=== PATIENT | female | born 1960 | race Caucasian/White ===

== ENCOUNTER → 2017-11-06 | Outpatient (CLI) | payer BC ==
--- NOTE | 2017-11-08 08:41 | RADIOLOGY REPORT (SQ) ---
EXAM DESCRIPTION: PET CT SKULL/THIGH COMPLETED DATE/TIME: 11/06/2017 9:54 pm REASON FOR STUDY: LYMPHOMA C85.88 OT TYPES OF NON-HODGKIN LYMPHOMA, LYMPH NODES MULT S COMPARISON: CT neck chest abdomen and pelvis 12/25/2014 PET-CT 08/26/2013 PET-CT 01/03/2011 RADIONUCLIDE AND DOSE: 12.7 mCi F18 FDG The route of agent administration: Intravenous FASTING BLOOD SUGAR: 85 mg/dl CONTRAST TYPE AND DOSE: No CT contrast given. TECHNIQUE: Blood glucose level was verified. Above dose of FDG was injected intravenously. 2-D seg mented attenuation correction images were obtained from the base of the skull to the midthighs. Nonc ontrast CT images were obtained for attenuation correction and fusion with emission images. CT image s were performed without oral or intravenous contrast and are not sensitive for parenchymal lesions. A series of overlapping emission PET images were obtained. Images [facility] by the radiologist. Images stored on PACS. LIMITATIONS: None. FINDINGS: HEAD AND NECK: No areas of abnormal metabolic activity in the soft tissues of the head and neck. No adenopathy. CHEST: No areas of abnormal metabolic activity in the chest. No adenopathy. ABDOMEN AND PELVIS: There is increased uptake throughout the stomach fundus, abnormal but nonspecific , with SUV of 6.8. Gastric lymphoma could not be excluded. PROXIMAL LOWER EXTREMITIES: No areas of abnormal metabolic activity in the soft tissues of the lower extremities. BONES: No abnormal metabolic activity in the visualized skeleton. ADDITIONAL CT FINDINGS: Postcholecystectomy. Colonic diverticuli without CT signs of acute diverticu litis. Tiny right lower pole intrarenal nonobstructive stone OTHER: Liver background activity 2.3 SUV. Blood pool background activity 1.4 SUV. IMPRESSION: Gastric fundal increased activity, could represent recurrence of lymphoma. No hypermetabolic adenopathy worrisome for lymphoma elsewhere. TECHNICAL DOCUMENTATION: JOB ID: [id number]- All Rights Reserved Reading location - IP/workstation name: [email or web address]
== END ==
LOC: RAD 19:24
PROVIDERS: ATTEND Internal Medicine
DX: C82.48 Follicular lymphoma grade IIIb, lymph nodes of multiple sites (principal)
CPT/HCPCS: 78815; A9552

== ENCOUNTER 2019-08-23 16:43 | Emergency (ER) | payer BC ==
[2019-08-23 17:47] LABS: APPEARANCE,URINE CLEAR; BILIRUBIN,URINE NEGATIVE (NEGATIVE); COLOR,URINE STRAW; GLUCOSE, URINE NEGATIVE (NEGATIVE); KETONES,URINE NEGATIVE (NEGATIVE); LEUKOCYTE ESTERASE,URINE NEGATIVE (NEGATIVE); NITRITE,URINE NEGATIVE (NEGATIVE); PROTEIN,URINE NEGATIVE (NEGATIVE); URINE SPECIFIC GRAVITY 1.005; UROBILINOGEN,URINE NEGATIVE mg/dL (<2.0)
[2019-08-23 17:49] LABS: ABSOLUTE BASOPHILS # (AUTO) 0.1 10^3/uL (0.0-0.2); ABSOLUTE EOSINOPHILS # (AUTO) 0.3 10^3/uL (0.0-0.6); ABSOLUTE LYMPHOCYTES (AUTO) 1.6 10^3/uL (0.5-4.7); ABSOLUTE MONOCYTES (AUTO) 0.8 10^3/uL (0.1-1.4); ABSOLUTE NEUT (AUTO) 6.1 10^3/uL (1.7-8.2); BASOPHILS % (AUTO) 0.8 % (0-2); EOSINOPHILS % (AUTO) 3.9 % (0-6); HEMATOCRIT 39.2 % (36.0-47.0); HEMOGLOBIN 13.7 g/dL (12.0-15.5); LYMPHOCYTES % (AUTO) 17.6 % (13-45); MEAN CORPUSCULAR HEMOGLOBIN 33.2 pg (27.0-33.4); MEAN CORPUSCULAR HGB CONC 34.9 g/dL (32.0-36.0); MEAN CORPUSCULAR VOLUME 95 fl (80-97); MONOCYTES % (AUTO) 9.1 % (3-13); PLATELET COUNT 226 10^3/uL (150-450); RED BLOOD COUNT 4.11 10^6/uL (3.72-5.28); RED CELL DISTRIBUTION WIDTH 14.4 % (11.5-14.0); SEGMENTED NEUTROPHILS % (AUTO) 68.6 % (42-78); TOTAL CELLS COUNTED % (AUTO) 100 %; WHITE BLOOD COUNT 8.9 10^3/uL (4.0-10.5)
[2019-08-23 17:58] LABS: ALBUMIN 4.3 g/dL (3.5-5.0); ALKALINE PHOSPHATASE 91 U/L (38-126); ANION GAP 8 (5-19); ASPARTATE AMINO TRANSFERASE 42 U/L (14-36); BILIRUBIN,DIRECT 0.3 mg/dL (0.0-0.4); BILIRUBIN,TOTAL 0.6 mg/dL (0.2-1.3); BLOOD UREA NITROGEN 9 mg/dL (7-20); CALCIUM 9.6 mg/dL (8.4-10.2); CARBON DIOXIDE 29 mmol/L (22-30); CHLORIDE 101 mmol/L (98-107); GLUCOSE 89 mg/dL (75-110); POTASSIUM 4.3 mmol/L (3.6-5.0); TOTAL PROTEIN 7.1 g/dL (6.3-8.2)
[2019-08-23] MEDS ORDERED: DEXAMETHASONE SOD PHOS INJ 10 MG/1 ML VIAL IV ONE (18:17)
[2019-08-23] MEDS ORDERED: IPRATROPIUM/ALBUTEROL 0.5-2.5 MG/3 ML AMPUL NEB ONE (18:17)
--- NOTE | 2019-08-23 18:25 | RADIOLOGY REPORT (SQ) ---
EXAM DESCRIPTION: CHEST SINGLE VIEW COMPLETED DATE/TIME: 08/23/2019 5:57 pm REASON FOR STUDY: SOB, Cough COMPARISON: PA and lateral views of the chest from 06/26/2012. EXAM PARAMETERS: NUMBER OF VIEWS: One view. TECHNIQUE: An AP view of the chest was obtained. RADIATION DOSE: NA LIMITATIONS: None. FINDINGS: LUNGS AND PLEURA: No consolidation, pleural effusion or pneumothorax. MEDIASTINUM AND HILAR STRUCTURES: No mediastinal or hilar contour abnormality. HEART AND VASCULAR STRUCTURES: The cardiac silhouette and pulmonary vasculature are within normal marquez its. BONES: No acute findings. HARDWARE: None in the chest. OTHER: No other finding. IMPRESSION: No acute cardiopulmonary process. TECHNICAL DOCUMENTATION: JOB ID: [id number] 2010 [employer]- All Rights Reserved Reading location - IP/workstation name: [email or web address]
--- NOTE | 2019-08-23 18:28 | ER Document Report ---
ED Respiratory Problem - General Chief Complaint: Shortness Of Breath Stated Complaint: COUGH/SHORTNESS OF BREATH Time Seen by Provider: 08/23/19 18:05 Primary Care Provider: SERA GRUBER MD [Primary Care Provider] - Follow up as needed Notes: CHIEF COMPLAINT: Cough, shortness of breath HPI: 59-year-old female with asthma history as well as lymphoma history in remission presenting for cough and shortness of breath over the last 12 days. Patient reports increased nasal and sinus congestion, increased shortness of breath with wheezing has been using albuterol inhaler and nebulizer as needed at home. No fever. Denies abdominal pain nausea vomiting. Denies chest pain. ROS: See HPI - all other systems were reviewed and are otherwise negative Constitutional: no fever Eyes: no drainage, no blurred vision ENT: positive runny nose, no sore throat Cardiovascular: no chest pain Resp: Positive SOB, positive cough GI: no vomiting, no diarrhea, no abdominal pain : no dysuria Integumentary: no rash Allergy: no hives Musculoskeletal: no extremity pain or swelling Neurological: no numbness/tingling, no weakness MEDICATIONS: I agree with the patient medications as charted by the RN. ALLERGIES: I agree with the allergies as charted by the RN. PAST MEDICAL HISTORY/PAST SURGICAL HISTORY: Reviewed and agree as charted by RN. SOCIAL HISTORY: Reviewed and agree as charted by RN. FAMILY HISTORY: No significant familial comorbid conditions directly related to patient complaint EXAM: Reviewed vital signs as charted by RN. CONSTITUTIONAL: Alert and oriented and responds appropriately to questions. Well-appearing; well-nourished, mild distress secondary to cough HEAD: Normocephalic; atraumatic EYES: PERRL; Conjunctivae clear, sclerae non-icteric ENT: normal nose; no rhinorrhea; moist mucous membranes; pharynx without lesions noted, no uvula edema or deviation, no tonsillar hypertrophy, phonation normal NECK: Supple without meningismus; non-tender; no cervical lymphadenopathy, no masses CARD: RRR; no murmurs, no clicks, no rubs, no gallops; symmetric distal pulses RESP: Normal chest excursion without splinting or tachypnea; breath sounds noted of posterior wheezing bilateral, no rhonchi, no rales, pulse oximetry 96% on room air not hypoxic ABD/GI: Normal bowel sounds; non-distended; soft, non-tender, no rebound, no guarding; no palpable organomegaly or masses. BACK: The back appears normal and is non-tender to palpation, there is no CVA tenderness EXT: Normal ROM in all joints; non-tender to palpation; no cyanosis, no effusions, no edema SKIN: Normal color for age and race; warm; dry; good turgor; no acute lesions noted NEURO: Moves all extremities equally; Motor and sensory function intact PSYCH: The patient's mood and manner are appropriate. Grooming and personal h ygiene are appropriate. MDM: 59-year-old female presenting for evaluation of cough shortness of breath congestion over the last 12 days. Started with nasal congestion now in the chest, she has an asthma history, has been using her inhaler has not been on steroids. Is afebrile here. More likely a viral etiology touching of bronchospasm then PE given the progression. Will give breathing treatment, steroids, reassess patient if she feels better will add steroids to regimen of breathing treatments at home TRAVEL OUTSIDE OF THE [place] IN LAST 30 DAYS: No - Related Data Allergies/Adverse Reactions: codeine [Codeine] Adverse Reaction (Verified 06/26/12 13:03) Home Medications: D3 vit, pravastatin, valacyclovir, albuterol neb, sertraline, alprazolam, albuterol inhaler Past Medical History - Social History Smoking Status: Current Every Day Smoker Chew tobacco use (# tins/day): No Frequency of alcohol use: None Drug Abuse: None Family History: Reviewed & Not Pertinent Patient has suicidal ideation: No Patient has homicidal ideation: No - Past Medical History Cardiac Medical History: Reports: Hx Coronary Artery Disease - controlled by med s Denies: Hx Heart Attack, Hx Hypertension Pulmonary Medical History: Denies: Hx Asthma, Hx Bronchitis, Hx COPD, Hx Pneumonia Neurological Medical History: Denies: Hx Cerebrovascular Accident, Hx Seizures Musculoskeletal Medical History: Denies Hx Arthritis Past Surgical History: Reports: Hx Cholecystectomy, Hx Oral Surgery. Denies: Hx Pacemaker - Immunizations Hx Diphtheria, Pertussis, Tetanus Vaccination: No Physical Exam - Vital signs Vitals: Temp Pulse Resp BP Pulse Ox 98.2 F 87 20 119/77 96 08/23/19 16:50 08/23/19 16:50 08/23/19 16:50 08/23/19 16:50 08/23/19 16:50 Course - Re-evaluation Re-evalutation: 08/23/19 19:39 Patient feels better after breathing treatment and steroids. Still with very slight expiratory wheezing. This is likely asthma related to a viral bronchospasm. Awaiting flu test to determine offering of Tamiflu. She is afebrile, lower suspicion for Covid at this time. Plan to keep patient on steroids, breathing treatments, PCP follow-up 08/23/19 19:55 Report will be given to oncoming shift to follow influenza and strep as they are not resulted yet. Nursing apparently had not initially collected them for a significant time after the original orders. If strep is positive we will obviously necessitate antibiotics. If influenza is positive given the patient's history will likely recommend Tamiflu. If both are negative anticipate discharge to follow-up with PCP - Vital Signs Vital signs: Temp Pulse Resp BP Pulse Ox 98.8 F 89 18 121/71 92 08/23/19 20:50 08/23/19 20:50 08/23/19 20:50 08/23/19 20:50 08/23/19 20:50 - Laboratory Result Diagrams: 08/23/19 17:10 08/23/19 17:10 Laboratory results interpreted by me: 08/23/19 08/23/19 17:10 17:10 RDW 14.4 H AST 42 H Discharge - Discharge Clinical Impression: Acute bronchospasm due to viral infection Condition: Stable Disposition: HOME, SELF-CARE Additional Instructions: 1. take the medications as prescribed 2. use the albuterol MDI or your nebulizer as instructed, 2 puffs every 4 hours as needed for cough/wheezing 3. call your primary care provider as soon as possible to schedule recheck appt. in the office. 4. return to the ED for any worsening condition, shortness of breath or continued fever that does not resolve with Motrin/Tylenol Prescriptions: Prednisone [Deltasone 20 mg Tablet] 2 tab PO DAILY 5 Days #10 tablet Referrals: SERA GRUBER MD [Primary Care Provider] - Follow up as needed
--- NOTE | 2019-08-23 20:00 | EKG REPORT ---
SEVERITY:- NORMAL ECG - SINUS RHYTHM : Confirmed by: Lupillo Camacho MD 23-Aug-2019 19:58:39
[2019-08-23 20:02] LABS: A TYPE INFLUENZA AG NEGATIVE (NEGATIVE); B INFLUENZA AG NEGATIVE (NEGATIVE)
[2019-08-23 20:52] VITALS: BP 121/71
== END 2019-08-23 21:09 | disposition home or self-care (01) ==
LOC: ER 16:43
DX: J45.909 Unspecified asthma, uncomplicated (principal); B97.89 Other viral agents as the cause of diseases classified elsewhere; R06.02 Shortness of breath; R05 Cough; R09.81 Nasal congestion; F17.200 Nicotine dependence, unspecified, uncomplicated; Z85.72 Personal history of non-Hodgkin lymphomas; I25.10 Atherosclerotic heart disease of native coronary artery without angina pectoris; Z79.899 Other long term (current) drug therapy
CPT/HCPCS: 93005; 94640; 99285; 96374; 36415; 87070; 87880; 85025; 80053; 81001; 87804; 71045; 93010; J1100; J7620

== ENCOUNTER 2020-05-05 23:42 | Emergency (ER) | payer BC ==
--- NOTE | 2020-05-06 00:06 | ER Document Report ---
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 Patient is concerned about a recurrence of the lymphoma. She has been cancer free for several years PHYSICAL EXAMINATION: There is soft tissue swelling with erythema and tenderness to the pinna of the right ear. There is no blistering rash noted. There is lymphadenopathy and soft tissue swelling in the right preauricular region with tenderness on palpation I have greeted and performed a rapid initial assessment of this patient. A comprehensive ED assessment and evaluation of the patient, analysis of test results and completion of medical decision making process will be conducted by an additional ED providers. TRAVEL OUTSIDE OF THE [place] IN LAST 30 DAYS: No - Related Data Allergies/Adverse Reactions: codeine [Codeine] Adverse Reaction (Verified 06/26/12 13:03) Past Medical History - Past Medical History Cardiac Medical History: Reports: Hx Coronary Artery Disease - controlled by meds Denies: Hx Heart Attack, Hx Hypertension Pulmonary Medical History: Denies: Hx Asthma, Hx Bronchitis, Hx COPD, Hx Pneumonia Neurological Medical History: Denies: Hx Cerebrovascular Accident, Hx Seizures Musculoskeltal Medical History: Denies Hx Arthritis Past Surgical History: Reports: Hx Cholecystectomy, Hx Oral Surgery. Denies: Hx Pacemaker - Immunizations Hx Diphtheria, Pertussis, Tetanus Vaccination: No Doctor's Discharge - Discharge Referrals: SERA GRUBER MD [Primary Care Provider] - Follow up as needed
[2020-05-06] MEDS ORDERED: KETOROLAC TROMETHAMINE INJ/PF 30 MG/1 ML SDV IV ONE (00:11)
[2020-05-06 00:36] LABS: ABSOLUTE BASOPHILS # (AUTO) 0.1 10^3/uL (0.0-0.2); ABSOLUTE EOSINOPHILS # (AUTO) 0.2 10^3/uL (0.0-0.6); ABSOLUTE LYMPHOCYTES (AUTO) 2.1 10^3/uL (0.5-4.7); ABSOLUTE MONOCYTES (AUTO) 0.9 10^3/uL (0.1-1.4); BASOPHILS % (AUTO) 0.7 % (0-2); EOSINOPHILS % (AUTO) 2.2 % (0-6); HEMATOCRIT 39.4 % (36.0-47.0); HEMOGLOBIN 13.7 g/dL (12.0-15.5); LYMPHOCYTES % (AUTO) 22.3 % (13-45); MEAN CORPUSCULAR HEMOGLOBIN 33.2 pg (27.0-33.4); MEAN CORPUSCULAR HGB CONC 34.7 g/dL (32.0-36.0); MEAN CORPUSCULAR VOLUME 96 fl (80-97); MONOCYTES % (AUTO) 9.6 % (3-13); PLATELET COUNT 204 10^3/uL (150-450); RED BLOOD COUNT 4.13 10^6/uL (3.72-5.28); SEGMENTED NEUTROPHILS % (AUTO) 65.2 % (42-78); TOTAL CELLS COUNTED % (AUTO) 100 %; WHITE BLOOD COUNT 9.2 10^3/uL (4.0-10.5)
[2020-05-06 00:50] LABS: ALBUMIN 4.3 g/dL (3.5-5.0); ALKALINE PHOSPHATASE 88 U/L (38-126); ANION GAP 6 (5-19); ASPARTATE AMINO TRANSFERASE 20 U/L (14-36); BILIRUBIN,DIRECT 0.2 mg/dL (0.0-0.4); BILIRUBIN,TOTAL 0.5 mg/dL (0.2-1.3); BLOOD UREA NITROGEN 12 mg/dL (7-20); CALCIUM 9.9 mg/dL (8.4-10.2); CARBON DIOXIDE 31 mmol/L (22-30); CHLORIDE 99 mmol/L (98-107); GLUCOSE 117 mg/dL (75-110); POTASSIUM 4.3 mmol/L (3.6-5.0); TOTAL PROTEIN 6.9 g/dL (6.3-8.2)
--- NOTE | 2020-05-06 01:50 | RADIOLOGY REPORT (SQ) ---
CT OF THE FACE: 05/06/2020 12:42 AM STAMP CLERK TECHNIQUE: Axial helical images were obtained through the face with intravenous contrast administered. Coronal and sagittal reformatted images were also obtained and examined. This exam was performed according to our departmental dose-optimization program, which includes automated exposure control, adjustment of the mA and/or KV according to the patient's size and/or use of iterative reconstruction technique. COMPARISON: PET/CT from 11/06/2017 HISTORY: 60-year old patient with swelling at the right preauricular region, known history of non-Hodgkin's lymphoma. FINDINGS: There is a hypodense enhancing mass seen at the right preauricular region which may extend from the parotid glands. The area is ill-defined due to adjacent inflammatory changes. This area measures at least 1.8 x 1.5 cm. This causes significant swelling around external auditory meatus. This is concerning for of malignancy. There may also be some superimposed malignancy. The visualized mastoid air cells appear clear. The mandible is unremarkable. There is minimal mucoperiosteal thickening of the ethmoid sinuses. The visualized submandibular glands are unremarkable but not fully included on this examination. There are nonspecific level two and five lymph nodes present bilaterally. No soft tissue masses are noted. Bony windows show no remodeling or obvious signs of fracture. No fluid is seen in the mastoid air cells. Both globes appear to be intact. The visualized carotid and internal jugular vasculature appear unremarkable. IMPRESSION: There is an enhancing mass noted at the right preauricular region which may arise from the parotid gland. This has some internal hypodensity suggestive of necrosis. Superimposed infection is not excluded.
[2020-05-06] MEDS ORDERED: AMPICILLIN SOD/SULBACTAM 3 GM VIAL IV ONE (05:46)
[2020-05-06] MEDS ORDERED: OXYCODONE-ACETAMINOPHEN 5-325 MG TABLET PO ONE (05:46)
--- NOTE | 2020-05-06 06:25 | ER Document Report ---
ED General - General Chief Complaint: Drainage from Ear Stated Complaint: SWOLLEN EAR, RED EAR Time Seen by Provider: 05/06/20 00:04 Primary Care Provider: SERA GRUBER MD [Primary Care Provider] - Follow up as needed Notes: 60-year-old female history of previous right facial lymphoma approximately 2012 status post treatment in remission times many years with no recent imaging presents with gradually worsening gradual onset right face pain with discharge coming from ear and pain in front of the ear with swelling and redness. Patient has appointment with her oncologist on Tuesday but because pain became severe she came to the ED. Had only taken Tylenol for pain prior to arrival in ED. Patient denies any fevers, diabetes, HIV, immunocompromise history, recent chemo, recent infections, pain behind the ear, vomiting, confusion, weakness or numbness, change in vision/speech/gait, prior episodes, swimming TRAVEL OUTSIDE OF THE [place] IN LAST 30 DAYS: No - Related Data Allergies/Adverse Reactions: codeine [Codeine] Adverse Reaction (Verified 06/26/12 13:03) Home Medications: valtrex, pravastatin, xanax, zoloft Past Medical History - General Information source: Patient, Relative - Social History Smoking Status: Current Every Day Smoker Family History: Reviewed & Not Pertinent - Past Medical History Cardiac Medical History: Reports: Hx Coronary Artery Disease - controlled by meds Denies: Hx Heart Attack, Hx Hypertension Pulmonary Medical History: Denies: Hx Asthma, Hx Bronchitis, Hx COPD, Hx Pneumonia Neurological Medical History: Denies: Hx Cerebrovascular Accident, Hx Seizures Musculoskeletal Medical History: Denies Hx Arthritis Past Surgical History: Reports: Hx Cholecystectomy, Hx Oral Surgery. Denies: Hx Pacemaker - Immunizations Hx Diphtheria, Pertussis, Tetanus Vaccination: No Review of Systems - Review of Systems Notes: REVIEW OF SYSTEMS: CONSTITUTIONAL : Denies fever, chills, or sweats. EENT: Denies recent sinus symptoms, denies throat pain CARDIOVASCULAR: Denies chest pain, JOSE RESPIRATORY: Denies cough, denies shortness of breath. GASTROINTESTINAL: Denies abdominal pain, nausea/vomiting. GENITOURINARY: Denies difficulty urinating, painful urination. MUSCULOSKELETAL: Denies neck pain, back pain. HEMATOLOGIC : Denies easy bruising or bleeding. LYMPHATIC: + swollen, enlarged glands. NEUROLOGICAL: Denies headache, denies change in gait. PSYCHIATRIC: Denies anxiety or stress or depression. Physical Exam - Vital signs Vitals: Temp Pulse Resp BP Pulse Ox 98.5 F 93 16 116/72 96 05/06/20 00:09 05/06/20 00:09 05/06/20 00:09 05/06/20 00:09 05/06/20 00:09 - Notes Notes: PHYSICAL EXAMINATION: GENERAL: Well-appearing, well-nourished and in no acute distress. HEAD: Atraumatic, normocephalic. EYES: Pupils equal round and appropriate constriction, sclera anicteric, conjunctiva are normal. ENT: nares patent, moist mucous membranes. Redness and induration overlying right preauricular area with minimal extension to right external auditory meatus with yellow discharge in external auditory meatus, external auditory canal patent and normal TM. No tenderness to ear cartilage, no tenderness behind ear, normal ear positioning NECK: Normal range of motion, supple without lymphadenopathy LUNGS: Normal respiratory rate and effort, speaking in full sentences HEART: Regular rate, no JVD, no lower extremity edema ABDOMEN: Soft, nontender, no guarding, no masses, no CVAT EXTREMITIES: Normal range of motion, no pitting or edema. No cyanosis. NEUROLOGICAL: Awake, alert, conversing appropriately, moves all extremities spontaneously. PSYCH: Normal mood, normal affect. SKIN: Warm, Dry, normal turgor Course - Re-evaluation Re-evalutation: 05/06/20 06:25 Patient with redness and swelling overlying parotid gland also otitis externa on exam, no presence of otitis media, no risk factors for exam findings consistent with mastoiditis, no perichondritis. CT scan obtained which shows findings concerning for recurrence of lymphoma with possible superimposed infection. No abscess on CT. Given that patient is afebrile, has very localized symptoms, no leukocytosis, is very well-appearing, no signs of neurologic involvement, and no immunocompromise history to complicate her course patient is appropriate for trial of outpatient p.o. antibiotics. Patient has an appointment with her oncologist this coming Tuesday and I discussed case with ENT on-call who recommends dose of Unasyn and dexamethasone in ED and discharge on Augmentin and will see patient in his office tomorrow morning at 10 AM. Patient is in agreement with this plan, I gave patient extensive return to ED precautions which she demonstrated understanding of, patient ready for discharge. - Vital Signs Vital signs: Temp Pulse Resp BP Pulse Ox 97.8 F 71 16 119/79 97 05/06/20 06:13 05/06/20 06:13 05/06/20 00:09 05/06/20 06:13 05/06/20 06:13 - Laboratory Result Diagrams: 05/05/20 23:10 05/05/20 23:10 Laboratory results interpreted by me: 05/05/20 23:10 Sodium 136.0 L Carbon Dioxide 31 H Glucose 117 H Discharge - Discharge Clinical Impression: Parotid mass Otitis externa Qualifiers: Otitis externa type: other infective Chronicity: acute Laterality: right Qualified Code(s): H60.391 - Other infective otitis externa, right ear Cellulitis Qualifiers: Site of cellulitis: face Qualified Code(s): L03.211 - Cellulitis of face Disposition: HOME, SELF-CARE Additional Instructions: Your symptoms likely represent a return of your previous cancer with an overlying infection. Take all antibiotics as prescribed. Follow-up tomorrow morning at [address] Kirk's office (ENT). If you have any worsening symptoms, worsening pain, headache, confusion, weakness or numbness, change in vision, change in how you walk or how you talk, fever, vomiting, neck stiffness, spreading pain, or any other worsening or alarming symptoms return to the emergency department immediately. Follow-up with your oncologist as scheduled this Tuesday. Bring results of your CAT scan with you when you follow-up. Prescriptions: Oxycodone HCl/Acetaminophen [Percocet 5-325 mg Tablet] 1 tab PO Q6HP PRN #6 tablet PRN Reason: Severe Pain Ciprofloxacin HCl [Cipro 500 mg Tablet] 500 mg PO BID #20 tablet Doxycycline Monohydrate 100 mg PO BID #20 capsule Referrals: ALLYSSA KIRK MD [ACTIVE STAFF] - 05/07/20 10:00 am SERA GRUBER MD [Primary Care Provider] - 05/09/20
[2020-05-06] MEDS ORDERED: CIPROFLOXACIN HCL 500 MG TABLET PO ONE (06:33)
[2020-05-06] MEDS ORDERED: DEXAMETHASONE SOD PHOS INJ 10 MG/1 ML VIAL IV ONE (06:34)
[2020-05-06 07:00] VITALS: BP 138/75
== END 2020-05-06 07:02 | disposition home or self-care (01) ==
LOC: ER 23:42
DX: K11.8 Other diseases of salivary glands (principal); H60.391 Other infective otitis externa, right ear; L03.211 Cellulitis of face; R51.9 Headache, unspecified; H92.11 Otorrhea, right ear; R22.0 Localized swelling, mass and lump, head; H93.8X1 Other specified disorders of right ear; Z85.72 Personal history of non-Hodgkin lymphomas; Z79.899 Other long term (current) drug therapy; Z88.8 Allergy status to other drugs, medicaments and biological substances; F17.200 Nicotine dependence, unspecified, uncomplicated
CPT/HCPCS: 99284; 96375; 96365; 36415; 87040; 85025; 80053; 70487; J0295; J1885; J1100

== ENCOUNTER → 2020-05-20 | Outpatient (CLI) | payer BC ==
--- NOTE | 2020-05-20 17:12 | RADIOLOGY REPORT (SQ) ---
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 RADIONUCLIDE AND DOSE: 10.21 mCi F18 FDG The route of agent administration: Intravenous FASTING BLOOD SUGAR: 122 mg/dl CONTRAST TYPE AND DOSE: No CT contrast given. TECHNIQUE: Blood glucose level was verified. Above dose of FDG was injected intravenously. 2-D seg mented attenuation correction images were obtained from the base of the skull to the midthighs. Nonc ontrast CT images were obtained for attenuation correction and fusion with emission images. CT image s were performed without oral or intravenous contrast and are not sensitive for parenchymal lesions. A series of overlapping emission PET images were obtained. Images reviewed and manipulated at [facility] work station by the radiologist. Images stored on PACS. LIMITATIONS: None. FINDINGS: HEAD AND NECK: There is increased metabolic activity in 2 small lymph nodes in the right p erivascular space. These are best demonstrated on series 3, image [address] images[address] SUV is 3.4 consi stent with neoplasm. There is physiologic uptake in the posterior pharynx. This is symmetric there is no CT abnormalities in this area. CHEST: Physiologic uptake in the left ventricle there is unusual uptake on the right aspect of the he art. SUV is measured 4.52 etiology of this is uncertain. No obvious mass or adenopathy on CT images . ABDOMEN AND PELVIS: No areas of abnormal metabolic activity in the abdomen or pelvis. Expected physi ologic activity is present in the genitourinary system and bowel. PROXIMAL LOWER EXTREMITIES: No areas of abnormal metabolic activity in the soft tissues of the lower extremities. BONES: No abnormal metabolic activity in the visualized skeleton. ADDITIONAL CT FINDINGS: No additional significant findings on the noncontrast CT images. OTHER: No other significant findings. IMPRESSION: There are 2 small nodes in the right aspect of the neck adjacent to the neurovascular bu ndle SUV is 3.4 consistent with neoplasm. This is new from prior study. There is increased metabolic activity anterior to the right main pulmonary artery. No CT abnormaliti es are noted etiology of this uptake is uncertain. TECHNICAL DOCUMENTATION: JOB ID: [id number] [employer]- All Rights Reserved Reading location - IP/workstation name: [email or web address]
== END ==
LOC: RAD 10:41
PROVIDERS: ATTEND Internal Medicine
DX: C82.48 Follicular lymphoma grade IIIb, lymph nodes of multiple sites (principal)
CPT/HCPCS: 78815; A9552